=== PATIENT | male | born 1955 ===

== ENCOUNTER 2019-06-16 19:15 | Emergency (ER) | payer MEDICARE, SELFPAY ==
[2019-06-16 19:11] VITALS: BP 60/35; PULSE 93; RESP 12; TEMP 32.6; O2SAT 95
--- NOTE | 2019-06-16 19:13 | DI.RAD.S_ITS ---
PROCEDURE: XR CHEST 1V INDICATIONS: weakness, sepsis TECHNIQUE: One view of the chest was acquired. COMPARISON: None. FINDINGS: Surgical changes and devices: None. Lungs and pleura: Lung volumes are low. Alveolar opacity at the right lung base and small right pleural effusion present. Linear atelectatic changes at the left lung base. Hazy alveolar opacity in the left infrahilar region. Diffuse thickening of the interstitial markings. No pneumothorax. Mediastinum: Mediastinal contours appear normal. Heart size is obscured by elevated hemidiaphragm. Bones and chest wall: No suspicious bony lesions. Healing left lower posterior rib fractures. Overlying soft tissues appear unremarkable. IMPRESSION: 1. Given low lung volumes, but are bibasilar infiltrates and diffusely thickened interstitial markings. This may be secondary to infection or edema. 2. Small right pleural effusion is present. Left effusion can't be excluded. 3. Obscured heart size. Dictated by: Marion Haynes M.D. on 06/16/2019 at 19:33 Approved by: Marion Haynes M.D. on 06/16/2019 at 19:35
[2019-06-16 19:33] VITALS: BP 69/35; PULSE 79; RESP 11; O2SAT 95
--- NOTE | 2019-06-16 19:34 | PC.NURSE ---
push dose epi given by Dr Nelson for bp 69/35
[2019-06-16] MEDS: NOREPINEPHRINE 4 MG in DEXTROSE 5% IN WATER 250 ML 30.48 ML IV (19:40)
[2019-06-16 19:50] VITALS: BP 65/42; PULSE 91; RESP 13; O2SAT 100
--- NOTE | 2019-06-16 19:53 | PC.NURSE ---
third push dose epi given by Dr Nelson for BP 67/46 despite initiation of levo gtt
[2019-06-16 19:56] VITALS: BP 85/51; PULSE 96; RESP 19; O2SAT 100
[2019-06-16 20:26] LABS: Ammonia (NH3) < 9 umol/L (9-30)
[2019-06-16 20:28] LABS: Acetaminophen < 10 ug/mL (10-30); Add Manual Diff / Slide Review NO; Alanine Aminotransferase 23 IU/L (<50); Albumin 1.8 g/dL (3.5-5.0); Albumin Globulin Ratio 0.7 (1.0-2.8); Alkaline Phosphatase 51 U/L (38-126); Aspartate Aminotransferase 75 IU/L (17-59); BUN Creatinine Ratio 26.5 (6-22); Basophils Absolute Auto 0 /uL (0-100); Basophils Percent Auto 0.2 % (0-2); Bilirubin Total 0.6 mg/dL (0.2-1.3); Bilirubin Unconjugated 0.2 mg/dL (0.0-1.1); Blood Urea Nitrogen 31 mg/dL (9-20); Calcium 7.3 mg/dL (8.4-10.2); Chloride 107 mmol/L (98-107); Creatine Kinase 475 U/L (55-170); Eosinophils Absolute Auto 0 /uL (0-450); Estimated Glomerular Filt Rate > 60.0 mL/min (>60); Ethanol (ETOH) 46 mg/dL; Globulin 2.5 g/dL (1.7-4.1); Glucose 117 mg/dL (80-110); HEMOLYSIS < 15 (0-50); Lymphocytes Absolute Auto 600 /uL (1100-4500); Lymphocytes Percent Auto 5.8 % (25-40); Mean Corpuscular HGB Conc 28.6 % (30-36); Mean Corpuscular Hemoglobin 34.8 PG (26-34); Mean Corpuscular Volume 121.6 fL (80-100); Monocytes Absolute Auto 800 /uL (0-900); Monocytes Percent Auto 7.5 % (3-14); Neutrophils Absolute Auto 9000 /uL (1500-7000); Neutrophils Percent Auto 86.5 % (50-75); Platelet Count 222 X10^3/uL (150-400); Red Blood Cell Count 0.92 X10^6/uL (4.5-5.9); Red Cell Distribution Width 15.5 % (11.6-14.8); Salicylate 1.4 mg/dL (<20); Sodium 140 mmol/L (137-145); Total Protein 4.3 g/dL (6.3-8.2); White Blood Cell Count 10.4 X10^3/uL (4.5-11.0)
[2019-06-16 20:29] LABS: Hemoglobin 3.2 g/dL (13.5-17.5)
[2019-06-16 20:30] LABS: Hematocrit 11.1 % (41-53)
--- NOTE | 2019-06-16 20:34 | PC.NURSE ---
patient began to vomit blood. oral suction started. No femoral pulse felt. CPR started at 2002, bari pollock called
--- NOTE | 2019-06-16 20:37 | ED_ITS ---
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 Patient is quite ill and adds little to the story, but is on scene and states he became gradually weaker over the course of the day and became too weak to get off the toilet and then laid on the grousd for a few hours starting at about 3:00 p.m., EMS was called at 6:00 p.m.. On their arrival they found him to be altered with an initial blood pressure in the 70s. He had no specific complaints and traditionally will refuse to seek medical care, today he is too weak to resist. He has had no recent injuries vomiting, diarrhea or other concerns MD complaint: altered mental status, confusion and decreased responsiveness Onset (ago): hour(s) Timing confirmed by: spouse Severity: severe Consistency of symptoms: getting worse Context: alcohol abuse Associated symptoms: denies other symptoms Treatments prior to arrival: IV fluid and oxygen Review of Systems Review of Systems ROS Unobtainable: Unobtainable due to mental status/LOC Constitutional Constitutional: Denies chills, Denies fatigue, Denies fever(s), Denies frequent falls, Denies lethargy and Denies weakness Eyes Eyes: Denies change in vision, Denies eye discharge, Denies irritation and D enies loss of vision ENT Ears, Nose, Mouth, and Throat: Denies change in voice, Denies dizziness, Denies neck pain, Denies sore throat and Denies throat swelling Cardiovascular Cardiovascular: Denies chest pain, Denies irregular heart rhythm, Denies lightheadedness, Denies palpitations, Denies dyspnea, Denies dyspnea on exertion and Denies orthopnea Respiratory Respiratory: Denies cough, Denies dyspnea, Denies dyspnea on exertion and Denies wheezing Gastrointestinal Gastrointestinal: Denies abdominal pain, Denies change in bowel habits, Denies diarrhea, Denies nausea and Denies vomiting Genitourinary Genitourinary: Denies hematuria, Denies flank pain, Denies urinary incontinence and Denies urinary urgency Musculoskeletal Musculoskeletal: Denies back pain, Denies muscle weakness, Denies neck pain, De nies numbness and Denies tingling Integumentary/Breasts Skin/Breast: Denies pruritus, Denies erythema, Denies rash and Denies wounds Neurologic Neurologic: Denies behavioral changes, Denies confusion, Denies dizziness, Denies frequent falls, Denies loss of vision, Denies numbness, Denies tingling and Denies weakness Psychiatric Psychiatric: Denies anxiety, Denies behavioral changes, Denies confusion, Denies depression, Denies homicidal ideation and Denies suicidal ideation Endocrine Endocrine: Denies fatigue, Denies flushing and Denies palpitations Hematologic/Lymphatic Hematologic/Lymphatic: Denies easy bruising Allergic/Immunologic Allergic/Immunologic: Denies urticaria, Denies throat swelling and Denies wheezing Patient History Social History Smoking Status: Current every day smoker Smoking Status: Current every day smoker alcohol intake frequency: 3 or more drinks per day Substance Use Type: does not use Exam Narrative Exam Narrative: GENERAL: [64] year old patient appears older than stated age. In severe distress, obviously critically ill HEAD: Atraumatic. Normocephalic. EYES: Pupils equal round and reactive. Extraocular motions intact. No scleral icterus. No injection or drainage. ENT: Dry mucous membranes without bleeding, purulent drainage. Throat without erythema, tonsillar hypertrophy or exudate. Airway patent. NECK: Trachea midline. Non tender CARDIOVASCULAR: Regular rate and rhythm without murmurs, gallops, or rubs. RESPIRATORY: Decreased breath sounds bilaterally with prolonged expiratory phase, no wheezes, rales or rhonchi GASTROINTESTINAL: Abdomen soft, mildly distended, nontender. EXTREMITIES: No edema or joint tenderness. BACK: Nontender without deformity or crepitance. No flank tenderness. NEURO: Sluggish to respond but does so accurately, no focal findings SKIN: No rash or erythema of visible areas Initial Vital Signs Initial Vital Signs: Vital Signs Temperature 90.6 F L 06/16/19 19:11 Pulse Rate 93 H 06/16/19 19:11 Respiratory Rate 12 06/16/19 19:11 Blood Pressure 60/35 L 06/16/19 19:11 Pulse Oximetry 95 06/16/19 19:11 Course Course Course Narrative: patient clearly very ill from onset. Found to be full code. 2 lines placed, pressures begin to dip into the 70s and 80s. Push dose epi administered on multiple occasions, norepi ordered. Patient trends towards increased work of breathing with decrease in mental status, he begins to show possible signs of L neglect. We begin prepping to secure airway and get CT of head when he begins vomiting copious amounts of dark emesis and loses vital signs. Code blue called and team limited to only the minimum needed. Droplet precautions used. Initial rhythm is PEA and epi administered with CPR started. LMA placed, IO placed. Pulse checks demonstrate no activity. Efforts taken to limit pauses to 10 seconds or less. Very quickly became clear this was a futile effort and after 2 rounds of ACLS efforts were ceased with complete agreement of code team. Debriefing immediately after. Orders Ordered: ED Orders 06/16/19 19:13 XR chest 1V Stat 06/16/19 19:23 EKG-12 Lead Stat 06/16/19 19:46 Acetaminophen Stat Ammonia (NH3) Stat Complete Blood Count AUTO DIFF Stat Comprehensive Metabolic Panel Stat Ethanol (ETOH) Stat Hepatic (Liver) Panel Stat Lactate (Lactic Acid) Stat Procalcitonin Stat Prolactin Stat Salicylate Stat Thyroid Stimulating Hormone Stat Troponin & CK Cardiac Panel Stat 06/16/19 20:00 Influenza A & B (PCR) Stat Urinalysis and Microscopic Stat Urine Drug Screen, Rapid Stat Discontinued Medications Thiamine HCl 100 mg/ Dextrose 51 mls @ 204 mls/hr IV NOW ONE Stop: 06/16/19 19:12 Last Admin: 06/16/19 20:51 Dose: Not Given Documented by: POP Norepinephrine Bitartrate 4 mg (/ Dextrose) 254 mls @ 30.48 mls/hr IV TITRATE KASSANDRA; Protocol Last Titration: 06/16/19 20:11 Dose: 0 mcg/min, 0 mls/hr Documented by: Titration: 06/16/19 19:52 Dose: 15.75 mcg/min, 60 mls/hr Documented by: Titration: 06/16/19 19:49 Dose: 11.81 mcg/min, 45 mls/hr Documented by: Admin: 06/16/19 19:40 Dose: 8 mcg/min, 30.48 mls/hr Documented by: POP Ketamine HCl (Ketalar) 65 mg 1 mg/kg (65 mg) IV NOW ONE Stop: 06/16/19 19:58 Last Admin: 06/16/19 20:52 Dose: Not Given Documented by: POP Rocuronium Corona (Zemuron) 40 mg 0.6 mg/kg (40 mg) IV NOW ONE Stop: 06/16/19 19:58 Last Admin: 06/16/19 20:52 Dose: Not Given Documented by: POP Vital Signs Vital signs: Vital Signs - 8 hr 06/16/19 19:50 06/16/19 19:56 Pulse Rate 91 H 96 H Respiratory Rate 13 19 Blood Pressure [Right Arm] 65/42 L 85/51 L Pulse Oximetry 100 100 MDM - Altered Mental Status Lab Data Result diagrams: 06/16/19 19:46 06/16/19 19:46 Labs: Lab Results 06/16/19 06/16/19 06/16/19 Range/Units 19:46 19:46 19:46 WBC (4.5-11.0) X10^3/uL RBC (4.5-5.9) X10^6/uL Hgb (13.5-17.5) g/dL Hct (41-53) % MCV (80-100) fL MCH (26-34) PG MCHC (30-36) % RDW (11.6-14.8) % Plt Count (150-400) X10^3/uL Neut % (Auto) (50-75) % Lymph % (Auto) (25-40) % [place] % (Auto) (3-14) % Eos % (Auto) (2-4) % Baso % (Auto) (0-2) % Neut # (Auto) (0382-3574) /uL Lymph # (Auto) (4695-1448) /uL [place] # (Auto) (0-900) /uL Eos # (Auto) (0-450) /uL Baso # (Auto) (0-100) /uL RBC Morphology Anisocytosis Macrocytosis Target Cells PT Cancelled INR Cancelled APTT Cancelled Sodium 140 (137-145) mmol/L Potassium 4.0 (3.4-5.1) mmol/L Chloride 107 (98-107) mmol/L Carbon Dioxide 7 L* (22-32) mmol/L BUN 31 H (9-20) mg/dL Creatinine 1.17 (0.66-1.25) mg/dL Estimated GFR > 60.0 (>60) mL/min BUN/Creatinine Ratio 26.5 H (6-22) Glucose 117 H (80-110) mg/dL Lactate (0.7-2.1) mmol/L Calcium 7.3 L (8.4-10.2) mg/dL Total Bilirubin 0.6 (0.2-1.3) mg/dL Conjugated Bilirubin 0.0 (0.0-0.3) md/dL Unconjugated Bilirubin 0.2 (0.0-1.1) mg/dL AST 75 H (17-59) IU/L ALT 23 (<50) IU/L Alkaline Phosphatase 51 (38-126) U/L Ammonia (9-30) umol/L Total Creatine Kinase 475 H (55-170) U/L CK-MB (CK-2) 2.32 (<2.37) ng/mL CK-MB (CK-2) Rel Index 0.5 L (1.5-5.0) % Troponin I < 0.012 (0.01-0.034) ng/mL Total Protein 4.3 L (6.3-8.2) g/dL Albumin 1.8 L (3.5-5.0) g/dL Globulin 2.5 (1.7-4.1) g/dL Albumin/Globulin Ratio 0.7 L (1.0-2.8) Procalcitonin 0.28 (<0.5) ng/mL TSH (0.47-4.68) uIU/mL Prolactin (3.7-17.9) ng/mL Urine Color Urine Appearance Urine pH (4.5-8.0) Ur Specific [place] (1.000-1.035) Urine Protein (Negative) Urine Glucose (UA) (Negative) g/dL Urine Ketones (NEGATIVE) Urine Occult Blood (Negative) Urine Nitrate (Negative) Urine Bilirubin (NEGATIVE) Urine Urobilinogen (0.2) E.U./dL Ur Leukocyte Esterase (NEGATIVE) Urine RBC (0-5/HPF) Urine WBC (0-5/HPF) Ur Transition Epith Cell (0-5/HPF) Ur Renal Epithelial Cell (0-1/HPF) Amorphous Sediment Urine Bacteria (None) Ur Culture Indicated? Salicylates 1.4 (<20) mg/dL U Opiates 300ng/mL cut (Negative) Ur Oxycodone Screen (Negative) Urine Methadone Screen (Negative) Acetaminophen < 10 L (10-30) ug/mL Ur Barbiturates Screen (Negative) U Tricyclic Antidepress (Negative) Ur Phencyclidine Scrn (Negative) Ur Amphetamines Screen (Negative) U Methamphetamines Scrn (Negative) Ur MDMA Scrn (Ecstasy) (Negative) U Benzodiazepines Scrn (Negative) Urine Cocaine Screen (Negative) U Marijuana (THC) Screen (Negative) Ethyl Alcohol 46 H ( - 10) mg/dL Influenza A (RT-PCR) (NEGATIVE) Influenza B (RT-PCR) (NEGATIVE) 06/16/19 06/16/19 06/16/19 Range/Units 19:46 19:46 19:46 WBC 10.4 (4.5-11.0) X10^3/uL RBC 0.92 L (4.5-5.9) X10^6/uL Hgb 3.2 L* (13.5-17.5) g/dL Hct 11.1 L* (41-53) % MCV 121.6 H (80-100) fL MCH 34.8 H (26-34) PG MCHC 28.6 L (30-36) % RDW 15.5 H (11.6-14.8) % Plt Count 222 (150-400) X10^3/uL Neut % (Auto) 86.5 H (50-75) % Lymph % (Auto) 5.8 L (25-40) % [place] % (Auto) 7.5 (3-14) % Eos % (Auto) 0.0 L (2-4) % Baso % (Auto) 0.2 (0-2) % Neut # (Auto) 9000 H (6588-0088) /uL Lymph # (Auto) 600 L (9768-5683) /uL [place] # (Auto) 800 (0-900) /uL Eos # (Auto) 0 (0-450) /uL Baso # (Auto) 0 (0-100) /uL RBC Morphology See below Anisocytosis 1+ H Macrocytosis 1+ H Target Cells 1+ H PT INR APTT Sodium (137-145) mmol/L Potassium (3.4-5.1) mmol/L Chloride (98-107) mmol/L Carbon Dioxide (22-32) mmol/L BUN (9-20) mg/dL Creatinine (0.66-1.25) mg/dL Estimated GFR (>60) mL/min BUN/Creatinine Ratio (6-22) Glucose (80-110) mg/dL Lactate 19.8 H* (0.7-2.1) mmol/L Calcium (8.4-10.2) mg/dL Total Bilirubin (0.2-1.3) mg/dL Conjugated Bilirubin (0.0-0.3) md/dL Unconjugated Bilirubin (0.0-1.1) mg/dL AST (17-59) IU/L ALT (<50) IU/L Alkaline Phosphatase (38-126) U/L Ammonia (9-30) umol/L Total Creatine Kinase (55-170) U/L CK-MB (CK-2) (<2.37) ng/mL CK-MB (CK-2) Rel Index (1.5-5.0) % Troponin I (0.01-0.034) ng/mL Total Protein (6.3-8.2) g/dL Albumin (3.5-5.0) g/dL Globulin (1.7-4.1) g/dL Albumin/Globulin Ratio (1.0-2.8) Procalcitonin (<0.5) ng/mL TSH 4.40 (0.47-4.68) uIU/mL Prolactin (3.7-17.9) ng/mL Urine Color Urine Appearance Urine pH (4.5-8.0) Ur Specific [place] (1.000-1.035) Urine Protein (Negative) Urine Glucose (UA) (Negative) g/dL Urine Ketones (NEGATIVE) Urine Occult Blood (Negative) Urine Nitrate (Negative) Urine Bilirubin (NEGATIVE) Urine Urobilinogen (0.2) E.U./dL Ur Leukocyte Esterase (NEGATIVE) Urine RBC (0-5/HPF) Urine WBC (0-5/HPF) Ur Transition Epith Cell (0-5/HPF) Ur Renal Epithelial Cell (0-1/HPF) Amorphous Sediment Urine Bacteria (None) Ur Culture Indicated? Salicylates (<20) mg/dL U Opiates 300ng/mL cut (Negative) Ur Oxycodone Screen (Negative) Urine Methadone Screen (Negative) Acetaminophen (10-30) ug/mL Ur Barbiturates Screen (Negative) U Tricyclic Antidepress (Negative) Ur Phencyclidine Scrn (Negative) Ur Amphetamines Screen (Negative) U Methamphetamines Scrn (Negative) Ur MDMA Scrn (Ecstasy) (Negative) U Benzodiazepines Scrn (Negative) Urine Cocaine Screen (Negative) U Marijuana (THC) Screen (Negative) Ethyl Alcohol ( - 10) mg/dL Influenza A (RT-PCR) (NEGATIVE) Influenza B (RT-PCR) (NEGATIVE) 06/16/19 06/16/19 06/16/19 Range/Units 19:46 19:46 20:00 WBC (4.5-11.0) X10^3/uL RBC (4.5-5.9) X10^6/uL Hgb (13.5-17.5) g/dL Hct (41-53) % MCV (80-100) fL MCH (26-34) PG MCHC (30-36) % RDW (11.6-14.8) % Plt Count (150-400) X10^3/uL Neut % (Auto) (50-75) % Lymph % (Auto) (25-40) % [place] % (Auto) (3-14) % Eos % (Auto) (2-4) % Baso % (Auto) (0-2) % Neut # (Auto) (2705-4063) /uL Lymph # (Auto) (2941-4330) /uL [place] # (Auto) (0-900) /uL Eos # (Auto) (0-450) /uL Baso # (Auto) (0-100) /uL RBC Morphology Anisocytosis Macrocytosis Target Cells PT INR APTT Sodium (137-145) mmol/L Potassium (3.4-5.1) mmol/L Chloride (98-107) mmol/L Carbon Dioxide (22-32) mmol/L BUN (9-20) mg/dL Creatinine (0.66-1.25) mg/dL Estimated GFR (>60) mL/min BUN/Creatinine Ratio (6-22) Glucose (80-110) mg/dL Lactate (0.7-2.1) mmol/L Calcium (8.4-10.2) mg/dL Total Bilirubin (0.2-1.3) mg/dL Conjugated Bilirubin (0.0-0.3) md/dL Unconjugated Bilirubin (0.0-1.1) mg/dL AST (17-59) IU/L ALT (<50) IU/L Alkaline Phosphatase (38-126) U/L Ammonia < 9 L (9-30) umol/L Total Creatine Kinase (55-170) U/L CK-MB (CK-2) (<2.37) ng/mL CK-MB (CK-2) Rel Index (1.5-5.0) % Troponin I (0.01-0.034) ng/mL Total Protein (6.3-8.2) g/dL Albumin (3.5-5.0) g/dL Globulin (1.7-4.1) g/dL Albumin/Globulin Ratio (1.0-2.8) Procalcitonin (<0.5) ng/mL TSH (0.47-4.68) uIU/mL Prolactin 40.9 H (3.7-17.9) ng/mL Urine Color Urine Appearance Urine pH (4.5-8.0) Ur Specific [place] (1.000-1.035) Urine Protein (Negative) Urine Glucose (UA) (Negative) g/dL Urine Ketones (NEGATIVE) Urine Occult Blood (Negative) Urine Nitrate (Negative) Urine Bilirubin (NEGATIVE) Urine Urobilinogen (0.2) E.U./dL Ur Leukocyte Esterase (NEGATIVE) Urine RBC (0-5/HPF) Urine WBC (0-5/HPF) Ur Transition Epith Cell (0-5/HPF) Ur Renal Epithelial Cell (0-1/HPF) Amorphous Sediment Urine Bacteria (None) Ur Culture Indicated? Salicylates (<20) mg/dL U Opiates 300ng/mL cut Negative (Negative) Ur Oxycodone Screen Negative (Negative) Urine Methadone Screen Negative (Negative) Acetaminophen (10-30) ug/mL Ur Barbiturates Screen Negative (Negative) U Tricyclic Antidepress Negative (Negative) Ur Phencyclidine Scrn Negative (Negative) Ur Amphetamines Screen Negative (Negative) U Methamphetamines Scrn Negative (Negative) Ur MDMA Scrn (Ecstasy) Negative (Negative) U Benzodiazepines Scrn Negative (Negative) Urine Cocaine Screen Negative (Negative) U Marijuana (THC) Screen Negative (Negative) Ethyl Alcohol ( - 10) mg/dL Influenza A (RT-PCR) (NEGATIVE) Influenza B (RT-PCR) (NEGATIVE) 06/16/19 06/16/19 Range/Units 20:00 20:00 WBC (4.5-11.0) X10^3/uL RBC (4.5-5.9) X10^6/uL Hgb (13.5-17.5) g/dL Hct (41-53) % MCV (80-100) fL MCH (26-34) PG MCHC (30-36) % RDW (11.6-14.8) % Plt Count (150-400) X10^3/uL Neut % (Auto) (50-75) % Lymph % (Auto) (25-40) % [place] % (Auto) (3-14) % Eos % (Auto) (2-4) % Baso % (Auto) (0-2) % Neut # (Auto) (9704-0185) /uL Lymph # (Auto) (9207-6600) /uL [place] # (Auto) (0-900) /uL Eos # (Auto) (0-450) /uL Baso # (Auto) (0-100) /uL RBC Morphology Anisocytosis Macrocytosis Target Cells PT INR APTT Sodium (137-145) mmol/L Potassium (3.4-5.1) mmol/L Chloride (98-107) mmol/L Carbon Dioxide (22-32) mmol/L BUN (9-20) mg/dL Creatinine (0.66-1.25) mg/dL Estimated GFR (>60) mL/min BUN/Creatinine Ratio (6-22) Glucose (80-110) mg/dL Lactate (0.7-2.1) mmol/L Calcium (8.4-10.2) mg/dL Total Bilirubin (0.2-1.3) mg/dL Conjugated Bilirubin (0.0-0.3) md/dL Unconjugated Bilirubin (0.0-1.1) mg/dL AST (17-59) IU/L ALT (<50) IU/L Alkaline Phosphatase (38-126) U/L Ammonia (9-30) umol/L Total Creatine Kinase (55-170) U/L CK-MB (CK-2) (<2.37) ng/mL CK-MB (CK-2) Rel Index (1.5-5.0) % Troponin I (0.01-0.034) ng/mL Total Protein (6.3-8.2) g/dL Albumin (3.5-5.0) g/dL Globulin (1.7-4.1) g/dL Albumin/Globulin Ratio (1.0-2.8) Procalcitonin (<0.5) ng/mL TSH (0.47-4.68) uIU/mL Prolactin (3.7-17.9) ng/mL Urine Color Yellow Urine Appearance Cloudy Urine pH 5.0 (4.5-8.0) Ur Specific [place] >=1.030 H (1.000-1.035) Urine Protein 1+ H (Negative) Urine Glucose (UA) Negative (Negative) g/dL Urine Ketones Trace H (NEGATIVE) Urine Occult Blood 3+ H (Negative) Urine Nitrate Negative (Negative) Urine Bilirubin Negative (NEGATIVE) Urine Urobilinogen 0.2 (0.2) E.U./dL Ur Leukocyte Esterase Negative (NEGATIVE) Urine RBC None seen (0-5/HPF) Urine WBC None seen (0-5/HPF) Ur Transition Epith Cell 1-5/hpf (0-5/HPF) Ur Renal Epithelial Cell 5-10/hpf H (0-1/HPF) Amorphous Sediment 3+ Urine Bacteria None seen (None) Ur Culture Indicated? Cult not indicated Salicylates (<20) mg/dL U Opiates 300ng/mL cut (Negative) Ur Oxycodone Screen (Negative) Urine Methadone Screen (Negative) Acetaminophen (10-30) ug/mL Ur Barbiturates Screen (Negative) U Tricyclic Antidepress (Negative) Ur Phencyclidine Scrn (Negative) Ur Amphetamines Screen (Negative) U Methamphetamines Scrn (Negative) Ur MDMA Scrn (Ecstasy) (Negative) U Benzodiazepines Scrn (Negative) Urine Cocaine Screen (Negative) U Marijuana (THC) Screen (Negative) Ethyl Alcohol ( - 10) mg/dL Influenza A (RT-PCR) Flu a negative (NEGATIVE) Influenza B (RT-PCR) Flu b negative (NEGATIVE) Point of Care Testing Glucose POC 174 Discharge Plan Departure Patient Disposition: Clinical Impression: Acute upper gastrointestinal bleeding Discharge Date/Time: 06/16/19 23:00 Date/Time: 06/16/19 20:10
[2019-06-16 20:39] LABS: Troponin I < 0.012 ng/mL (0.01-0.034)
[2019-06-16 20:44] LABS: CKMB % Relative Index 0.5 % (1.5-5.0); Creatine Kinase MB 2.32 ng/mL (<2.37)
--- NOTE | 2019-06-16 20:44 | PC.NURSE ---
1999 Brown emesis noted from mouth, oral suctioning done. Pt with worsening pallor, no pulse on palpation. Chest compressions started at 2002 and Joy Wren called. Dr Nelson at bedside. LMA placed, epi given IVP push per verbal order from Dr Nelson. L lower leg IO placed. Pt remained pulseless, asystole noted on [employer]. Time of called at [address] Nelson.
[2019-06-16 20:46] LABS: Carbon Dioxide 7 mmol/L (22-32)
[2019-06-16 20:47] LABS: Lactate (Lactic Acid) 19.8 mmol/L (0.7-2.1)
[2019-06-16 20:55] LABS: Bacteria Urine None Seen; RBC Urine None Seen (0-5/HPF); WBC Urine None Seen (0-5/HPF)
[2019-06-16 21:06] LABS: Appearance Urine UA CLOUDY; Bilirubin Urine UA NEGATIVE (NEGATIVE); Color Urine UA YELLOW; Glucose Urine UA NEGATIVE (Negative); Ketones Urine UA TRACE (NEGATIVE); Leukocyte Esterase Urine UA NEGATIVE (NEGATIVE); Nitrite Urine UA NEGATIVE (Negative); Occult Blood Urine UA 3+ (Negative); Protein Urine UA 1+ (Negative); Specific Gravity Urine UA >=1.030 (1.000-1.035); Urobilinogen Urine UA 0.2 E.U./dL (0.2)
[2019-06-16 21:07] LABS: UR Morphine/Opiate cutoff 300 Negative (Negative); Ur Creatinine 100 (Normal); Ur Specific Gravity >1.030 (Normal); Urine Amphetamines Negative (Negative); Urine Barbiturates Negative (Negative); Urine Benzodiazepines Negative (Negative); Urine Cocaine Negative (Negative); Urine MDMA Negative (Negative); Urine Methamphetamines Negative (Negative); Urine Phencyclidine Negative (Negative); Urine Tetrahydrocannabinol Negative (Negative); Urine pH 5 (Normal)
[2019-06-16 21:08] LABS: Urine Methadone Negative (Negative); Urine Oxycodone Negative (Negative); Urine Tricyclic Antidepressant Negative (Negative)
[2019-06-16 21:09] LABS: Procalcitonin 0.28 ng/mL (<0.5)
[2019-06-16 21:14] LABS: Prolactin 40.9 ng/mL (3.7-17.9)
[2019-06-16 21:23] LABS: Amorphous Sediment Urine 3+; Renal Epithelial Cells Urine 5-10/HPF (0-1/HPF); Transitional Epi Cells Urine 1-5/HPF (0-5/HPF)
[2019-06-16 21:24] LABS: Culture Indicated Urine Cult Not Indicated
[2019-06-16 21:31] LABS: Influenza A - CEPHEID Flu A NEGATIVE (NEGATIVE); Influenza B - CEPHEID Flu B NEGATIVE (NEGATIVE)
[2019-06-16 21:35] LABS: Anisocytosis 1+; Macrocytosis 1+; Target Cells 1+
--- NOTE | 2019-06-16 21:35 | PC.NURSE ---
[id number] Spoke Alma [facility], states release pt to [facility] tonight case # [id number]
[2019-06-16 22:08] LABS: Reflexed Lactate in 2 Hours Y
--- NOTE | 2019-06-16 22:20 | PC.NURSE ---
Left middle finger ring is only patient belonging.
[2019-06-19 01:10] LABS: COVID19 Sendout Not Detected (Not Detected)
== END 2019-06-16 23:00 | disposition expired ==
PROVIDERS: Emergency Provider Emergency Medicine
DX: K92.2 Gastrointestinal hemorrhage, unspecified (principal); R46.4 Slowness and poor responsiveness
CPT/HCPCS: 36415; 51701; 71045; 80053; 80076; 80305; 80320; 80329; 81001; 82140; 82550; 82553; 82962; 83605; 84145; 84146; 84443; 84484; 85025; 87502; 87635; 93005; 96365; 99285; 99291; G0480; J0171